=== PATIENT | male | born 1965 | race Native Hawaiian/Other Pacific Islander ===

== ENCOUNTER 2018-11-28 11:50 | Emergency (ER) | payer OTHER ==
[~2018-11-28] VITALS: Ht 185.4 cm; Wt 76.2 kg
[2018-11-28 13:49] LABS: PLATELET COUNT 222 K/uL (142-355)
[2018-11-28 13:55] LABS: POTASSIUM 3.5 mmol/L (3.6-5.2)
[2018-11-28 14:58] VITALS: BP 127/84; TEMP 98.6
== END 2018-11-28 15:10 | disposition home or self-care (01) ==
LOC: ED 11:50
PROVIDERS: Family Medicine
DX: N43.3 Hydrocele, unspecified (principal)
CPT/HCPCS: 36415; 80053; 81000; 85027; 96372; 99283; J0696; J1885; J2175